=== PATIENT | female | born 1970 | race Caucasian/White ===

== ENCOUNTER 2016-09-25 11:34 | Emergency (ER) | payer OTHER ==
[~2016-09-25] VITALS: Ht 165.1 cm; Wt 59.0 kg
[2016-09-25 11:39] VITALS: BP 122/71
[2016-09-25] MEDS ORDERED: AUGMENTIN 875-1 EACH PO (11:53)
--- NOTE | 2016-09-25 11:54 | ED INFLUENZA/URI COMPLAINT ---
History of Present Illness General Chief Complaint: Upper Respiratory Sx/Fever Stated Complaint: ?SINUS INFECTION Source: patient Exam Limitations: no limitations Vital Signs & Intake/Output Vital Signs & Intake/Output Vital Signs Date Time Temp Pulse Resp B/P Pulse O2 O2 Flow FiO2 Ox Delivery Rate 09/25 1151 98 09/25 1139 99.1 73 20 122/71 99 Room Air Allergies Coded Allergies: No Known Allergies (09/25/16) Reconcile Medications Amoxicillin/Potassium Clav (Augmentin 875-125 Tablet) 875 MG-125 MG TABLET 1 TAB PO BID INFECTION Triage Note: PT C/O H/A AND CONGESTION X 1 MONTH. STATES SHE CAN'T SLEEP AT NIGHT. STATES SHE HAD THIS PROBLEM BEFORE AND HAD POLYUPS REMOVED FROM NOSE Triage Nurses Notes Reviewed? yes Onset: Gradual Duration: week(s): (2-3) Timing: recent history Severity: moderate No Modifying Factors: none Associated Symptoms: nasal congestion, HEADACHE HPI: This is a 46-year-old female with history of previous polyp removal done by Gay Beatty MD who presents to the ER with a 3 week history of nasal congestion and purulent nasal drainage. No fever or chills. She was seen by walking clinic last week and they gave her an allergy medication. She states she's been taking Tylenol for pain. Pain in her face is been getting worse. Associated with some headaches which are getting better with Tylenol. Past History Travel History Traveled to [place] past 21 day No Medical History Any Pertinent Medical History? see below for history EENT: NASAL POLYP Surgical History Surgical History: NASAL POLYP SURGERY Psychosocial History What is your primary language Syriac Tobacco Use: Never used ETOH Use: denies use Illicit Drug Use: denies illicit drug use Family History Hx Contributory? No Review of Systems Review of Systems Constitutional: Denies: chills, fever. EENTM: Reports: nasal congestion (FACIAL PAIN), epistaxis. Respiratory: Denies: cough, short of breath, sputum production. Cardiovascular: Denies: chest pain. GI: Denies: abdominal pain. Genitourinary: Reports: no symptoms. Musculoskeletal: Reports: no symptoms. Skin: Reports: no symptoms. Neurological/Psychological: Reports: headache. Hematologic/Endocrine: Denies: bruising, bleeding. Immunologic/Allergic: Denies: splenectomy. All Other Systems: Reviewed and Negative Physical Exam Physical Exam General Appearance: well developed/nourished, alert, awake, mild distress Head: atraumatic, normal appearance Eyes: Bilateral: normal appearance, PERRL, EOMI. Ears, Nose, Throat: LEFT NASAL CONGESTION, LEFT MAXILLARY PAIN Neck: normal inspection, supple, full range of motion Respiratory: normal breath sounds, chest non-tender, no respiratory distress Cardiovascular: regular rate/rhythm Neurologic/Psych: no motor/sensory deficits, awake, alert, oriented x 3 Skin: intact, normal color, warm/dry Core Measures Severe Sepsis Present: No Septic Shock Present: No Progress Differential Diagnosis: sinusitis Plan of Care: ABX, ENT FOLLOW UP. Initial ED EKG: none Departure Departure Time of Disposition: 1152 Disposition: HOME OR SELF CARE Condition: Stable Clinical Impression Primary Impression: Sinusitis Referrals: JOSÉ MIGUEL EASTON,GAY HUERTA MD,DANILO Centeno (PCP/Family) Additional Instructions: Take the Augmentin as directed. Please follow up with Gay Beatty MD in the office. Return to the ER for any changing or worsening symptoms. Departure Forms: Customer Survey General Discharge Information Prescriptions: Current Visit Scripts Amoxicillin/Potassium Clav (Augmentin 875-125 Tablet) 1 TAB PO BID #14 TAB
== END 2016-09-25 12:00 ==
LOC: ERH 11:34
DX: J32.9 Chronic sinusitis, unspecified (principal)